=== PATIENT | male | born 1950 | race Caucasian/White ===

== ENCOUNTER 2017-11-25 22:08 | Inpatient (IN) | payer MEDICARE ==
[~2017-11-25] VITALS: Ht 177.8 cm; Wt 84.1 kg
[~2017-11-25 22:08] MED LIST: ATIVAN; INDERAL 20MG20 MG PO; KLONOPIN 0.5MG0.5 MG PO; KLONOPIN PO; LOFIBRA160 MG PO; LOPRESSOR100 MG
[2017-11-25 22:30] LABS: BASO # 0.1 (0.0-0.2); BASO % 0.6 % (0.0-2.0); EOS # 0.1 (0.0-0.7); EOS % 1.5 % (0-4.0); GRAN # 6.4 (1.4-6.5); GRAN % 67.8 % (42.2-75.2); HEMATOCRIT 46.6 % (42.0-52.0); HEMOGLOBIN 15.7 g/dl (13.5-18.0); LYMPH # 2.2 (1.2-3.4); LYMPH % 23.1 % (20.0-51.0); MEAN CELL VOLUME 93 fl (80.0-100.0); MEAN CORPUSCULAR HEMOGLOBIN 31 pg (27.0-31.0); MEAN CORPUSCULAR HGB CONC 34 g/dl (33.0-37.0); MEAN PLATELET VOLUME 11.2 fl (7.4-10.4); MONO # 0.6 (0.1-0.6); MONO % 6.4 % (1.7-9.3); PLATELET COUNT 189 K/mm3 (130-400); RED BLOOD COUNT 5.01 M/mm3 (4.20-5.60); REDCELL DISTRIBUTION WIDTH-CV 13.2 % (11.5-14.5)
[2017-11-25 22:33] LABS: INR 0.9 (0.8-3.0); PROTHROMBIN TIME 10.3 SECONDS (9.7-12.8)
[2017-11-25 22:35] LABS: ALBUMIN 4.2 gm/dL (3.5-5.0); BILIRUBIN,TOTAL 0.6 mg/dL (0.0-1.0); CALCIUM 9.2 mg/dL (8.4-10.2); CREATININE, serum 1.35 mg/dL (0.66-1.25); POTASSIUM 4.5 mmol/L (3.4-5.0); TOTAL PROTEIN 7.5 gm/dL (6.4-8.2)
[2017-11-25 22:49] LABS: TROPONIN-I 0.04 ng/mL (0.000-0.034)
[2017-11-26] VITALS (503 sets, daily range): BP systolic 101–130; BP diastolic 56–76; PULSE 65–86; TEMP 97.6–98.7; O2SAT 90–100
[2017-11-26] MEDS ORDERED: TOPROL XL100 MG PO (02:25)
[2017-11-26] MEDS ORDERED: PRINIVIL40 MG PO (02:25)
[2017-11-26] MEDS ORDERED: ZOCOR 40MG40 MG PO (02:27)
[2017-11-26] MEDS ORDERED: ASPIRIN E.C. 8181 MG PO (02:29)
[2017-11-26 06:05] LABS: BASO # 0.1 (0.0-0.2); BASO % 0.5 % (0.0-2.0); EOS # 0.1 (0.0-0.7); EOS % 0.7 % (0-4.0); GRAN # 6.6 (1.4-6.5); GRAN % 66.5 % (42.2-75.2); HEMATOCRIT 43.3 % (42.0-52.0); HEMOGLOBIN 14.5 g/dl (13.5-18.0); LYMPH # 2.4 (1.2-3.4); LYMPH % 23.7 % (20.0-51.0); MEAN CELL VOLUME 93 fl (80.0-100.0); MEAN CORPUSCULAR HEMOGLOBIN 31 pg (27.0-31.0); MEAN CORPUSCULAR HGB CONC 34 g/dl (33.0-37.0); MEAN PLATELET VOLUME 11.1 fl (7.4-10.4); MONO # 0.8 (0.1-0.6); MONO % 8.2 % (1.7-9.3); PLATELET COUNT 158 K/mm3 (130-400); RED BLOOD COUNT 4.67 M/mm3 (4.20-5.60); REDCELL DISTRIBUTION WIDTH-CV 13.2 % (11.5-14.5)
[2017-11-26 06:27] LABS: ALBUMIN 3.7 gm/dL (3.5-5.0); BILIRUBIN,TOTAL 0.5 mg/dL (0.0-1.0); CALCIUM 9.3 mg/dL (8.4-10.2); CREATININE, serum 1.05 mg/dL (0.66-1.25); POTASSIUM 4.1 mmol/L (3.4-5.0); TOTAL PROTEIN 6.9 gm/dL (6.4-8.2)
[2017-11-26 07:06] LABS: CHOLESTEROL RISK RATIO 3.1
[2017-11-26 07:26] LABS: TROPONIN-I 4.38 ng/mL (0.000-0.034)
[2017-11-26 07:39] LABS: THYROID STIMULATING HORMONE 0.259 uIU/mL (0.465-4.680)
[2017-11-27] VITALS (207 sets, daily range): BP systolic 106–120; BP diastolic 61–78; PULSE 70–79; TEMP 98.1–98.8; O2SAT 70–100
[2017-11-27 05:55] LABS: BASO % 0.4 % (0.0-2.0); EOS # 0.1 (0.0-0.7); EOS % 1.4 % (0-4.0); GRAN # 6.2 (1.4-6.5); GRAN % 68.6 % (42.2-75.2); HEMATOCRIT 39.6 % (42.0-52.0); HEMOGLOBIN 13.6 g/dl (13.5-18.0); LYMPH # 1.8 (1.2-3.4); LYMPH % 20.1 % (20.0-51.0); MEAN CELL VOLUME 92 fl (80.0-100.0); MEAN CORPUSCULAR HEMOGLOBIN 32 pg (27.0-31.0); MEAN CORPUSCULAR HGB CONC 34 g/dl (33.0-37.0); MEAN PLATELET VOLUME 10.9 fl (7.4-10.4); MONO # 0.8 (0.1-0.6); MONO % 9.2 % (1.7-9.3); PLATELET COUNT 155 K/mm3 (130-400); RED BLOOD COUNT 4.31 M/mm3 (4.20-5.60); REDCELL DISTRIBUTION WIDTH-CV 13.3 % (11.5-14.5)
[2017-11-27 06:15] LABS: CALCIUM 8.7 mg/dL (8.4-10.2); CREATININE, serum 0.98 mg/dL (0.66-1.25); POTASSIUM 3.7 mmol/L (3.4-5.0)
[2017-11-27 06:38] LABS: TROPONIN-I 5.39 ng/mL (0.000-0.034)
[2017-11-27] MEDS ORDERED: NITROSTAT0.4 MG/TAB SL (11:07)
[2017-11-27] MEDS ORDERED: PLAVIX 75MG TAB75 MG PO (11:07)
[2017-11-27] MEDS ORDERED: TYLENOL 325MG325 MG PO (11:08)
[2017-11-27] MEDS ORDERED: ASPI325T6 PO (11:08)
[2017-11-27] MEDS ORDERED: COLACE 100100 MG/CAP PO (11:11)
[2017-11-27] MEDS ORDERED: GLUCOPHAGE500 MG/TAB PO (19:46)
== END 2017-11-27 13:10 | disposition home or self-care (01) | DRG 247 ==
LOC: COL.ER 22:08 → ICU 11-26 01:24
PROVIDERS: Emergency Medicine; Internal Medicine; Internal Medicine Cardiovascular Disease; Nurse Practitioner Family
PROC: 027034Z Dilation of Coronary Artery, One Artery with Drug-eluting Intraluminal Device, Percutaneous Approach (ICD-10-PCS; principal; 2017-11-26)
PROC: B2111ZZ Fluoroscopy of Multiple Coronary Arteries using Low Osmolar Contrast (ICD-10-PCS; 2017-11-26)
PROC: B2151ZZ Fluoroscopy of Left Heart using Low Osmolar Contrast (ICD-10-PCS; 2017-11-26)
PROC: 4A023N7 Measurement of Cardiac Sampling and Pressure, Left Heart, Percutaneous Approach (ICD-10-PCS; 2017-11-26)
DX: I21.4 Non-ST elevation (NSTEMI) myocardial infarction (principal); N17.9 Acute kidney failure, unspecified; I25.10 Atherosclerotic heart disease of native coronary artery without angina pectoris; I48.91 Unspecified atrial fibrillation; I10 Essential (primary) hypertension; E11.65 Type 2 diabetes mellitus with hyperglycemia; F41.0 Panic disorder [episodic paroxysmal anxiety]; F17.210 Nicotine dependence, cigarettes, uncomplicated
CPT/HCPCS: 99223-AI; 99239; C1725; C1769; C1874; C1887; C9600; J0583; J1200; J1644; J1650; J2060; J2250; J3010; J7030; J7050; Q9967